=== PATIENT | female | born 1995 | race Caucasian/White ===

== ENCOUNTER 2018-07-11 01:28 | Emergency (ER) | payer MEDICAID ==
[~2018-07-11] VITALS: Ht 167.6 cm; Wt 81.2 kg
[2018-07-11 01:35] VITALS: Ht 167.6 cm; Wt 81.2 kg
[2018-07-11 02:30] VITALS: BP 106/77
== END 2018-07-11 02:30 | disposition home or self-care (01) ==
LOC: ED 01:28
DX: R09.1 Pleurisy (principal); R07.89 Other chest pain; R07.81 Pleurodynia; Z98.890 Other specified postprocedural states
CPT/HCPCS: J1885

== ENCOUNTER 2018-07-21 21:37 | Emergency (ER) | payer MEDICAID ==
[~2018-07-21] VITALS: Ht 157.5 cm; Wt 79.8 kg
[2018-07-21 21:43] VITALS: Ht 157.5 cm; Wt 79.8 kg
[2018-07-21 23:17] VITALS: BP 134/90
== END 2018-07-21 23:17 | disposition home or self-care (01) ==
LOC: ED 21:37
DX: J40 Bronchitis, not specified as acute or chronic (principal)
CPT/HCPCS: Q0092

== ENCOUNTER 2018-10-20 22:13 | Emergency (ER) | payer MEDICAID ==
[~2018-10-20] VITALS: Ht 157.5 cm; Wt 78.0 kg
[2018-10-20 22:31] VITALS: Ht 157.5 cm; Wt 78.0 kg
[2018-10-21 01:24] VITALS: BP 127/74
== END 2018-10-21 01:24 | disposition home or self-care (01) ==
LOC: ED 22:13
DX: S93.401A Sprain of unspecified ligament of right ankle, initial encounter (principal); W18.30XA Fall on same level, unspecified, initial encounter; Y93.89 Activity, other specified; Y92.89 Other specified places as the place of occurrence of the external cause; Y99.8 Other external cause status